=== PATIENT | male | born 1970 | race Caucasian/White ===

== ENCOUNTER 2020-08-29 20:59 | Emergency (ER) | payer OTHER, SELFPAY ==
[2020-08-29] VITALS (16 sets, daily range): BP systolic 119–138; BP diastolic 75–91; PULSE 68–80; RESP 12–22; TEMP 36.4; O2SAT 96–100
--- NOTE | ~2020-08-29 | XR_ITS ---
EXAMINATION: XR chest 2V DATE: 08/29/2020 21:22 INDICATION: Chest pain, nausea and vomiting TECHNIQUE: PA and lateral views of the chest were obtained. COMPARISON: None FINDINGS: Minimal elevation of the left hemidiaphragm. No focal airspace opacities, pulmonary edema, pleural ef fusion or pneumothorax. Calcified right hilar lymph node consistent with old granulomatous disease. T he cardiomediastinal silhouette is normal. Cholecystectomy clips in right upper quadrant. Mild upper thoracic levocurvature and mild lower thoracic spondylosis. IMPRESSION: 1. No acute cardiopulmonary disease. Reviewed, dictated and finalized at location A. KMASON
--- NOTE | ~2020-08-29 | CT_ITS ---
EXAMINATION: CT abdomen pelvis w con INDICATION: Epigastric abdominal pain TECHNIQUE: Computed tomographic images of the abdomen and pelvis were obtained after the administrati on of 100 cc of Omnipaque 350 intravenous contrast. The dose-length product (DLP) was 572.41 mGy-cm. Automated exposure control and iterative reconstruction technique were employed. COMPARISON: None available FINDINGS: Minimal dependent atelectasis is present in the lung bases. The heart size is normal. The g allbladder is surgically absent. There is mild enlargement of the common bile duct and central intrah epatic ducts which is likely due to post cholecystectomy state. The liver, spleen, pancreas, and adre nal glands are normal. The kidneys are unremarkable. No pathologically enlarged abdominal or pelvic l ymph nodes are identified. There is no free intraperitoneal gas or evidence of bowel obstruction. The re are changes of anterior and posterior fusion at L5-S1. Ventral hernia repair mesh is noted in the right lower quadrant. IMPRESSION: 1. No CT correlate for the patient's symptoms. Reviewed, dictated and finalized at location A. TEST LEAD
--- NOTE | 2020-08-29 21:00 | ECG_ITS ---
Measurements Intervals Cunningham Rate: 76 P: 54 RI: 171 QRS: -50 QRSD: 109 T: 22 QT: 395 QTc: 445 Interpretive Statements SINUS RHYTHM INCOMPLETE RIGHT BUNDLE BRANCH BLOCK LEFT ANTERIOR FASCICULAR BLOCK VOLTAGE CRITERIA FOR LVH BASELINE ARTIFACT- I, III, AVL, V2 ABNORMAL ECG Electronically Signed On 08-30-2020 7:04:20 [employer]RE[employer]IPPING AGENT by Serg Chappell D.O.
[2020-08-29] MEDS: ASPIRIN 81 MG CHEWABLE TABLET 324 MG PO (21:13)
--- NOTE | 2020-08-29 21:14 | PC.NURSE ---
Patient taken to xray.
[2020-08-29 21:31] LABS: Basophils Percent Auto 0.2 % (0.2-1.2); Eosinophils Absolute Auto 0.2 K/mm3 (0-0.3); Hematocrit 46.3 % (42.0-52.0); Hemoglobin 15.7 g/dL (14.0-18.0); Immature Granulocyte Absolute 0.04 K/mm3 (0.00-0.031); Immature Granulocyte Percent A 0.4 % (0-0.5); Lymphocytes Absolute Auto 2.26 K/mm3 (0.9-3.2); Lymphocytes Percent Auto 22.1 % (18.3-44.2); Mean Corpuscular HGB Conc 33.9 g/dl (32-36); Mean Corpuscular Hemoglobin 29.8 pg (26-34); Mean Corpuscular Volume 87.9 fl (80-100); Mean Platelet Volume 10.1 fl (7.4-10.4); Monocytes Absolute Auto 0.8 K/mm3 (0.1-0.6); Monocytes Percent Auto 7.9 % (2.6-8.5); Neutrophils Absolute Auto 6.9 K/mm3 (1.3-6.7); Neutrophils Percent Auto 67.4 % (45.5-73.1); Platelet Count Result 257 k/mm3 (150-375); Red Blood Count 5.27 M/mm3 (4.6-6.20); Red Cell Distribution Width 12.3 % (11.5-14.5); White Blood Count 10.2 K/mm3 (4.5-10.0)
--- NOTE | 2020-08-29 21:37 | ED.GENADULT ---
HPI - General Adult General Chief complaint: Chest Pain Stated complaint: chest pain Time Seen by Provider: 08/29/20 21:14 Source: patient and family Limitations: no limitations History of Present Illness HPI narrative: Patient is 49 years old white male presents with epigastric and lower sternal sharp stabbing pain like a knife started immediately after coming back from outside with severe cold weather. The pain was associated with nausea and vomiting twice, patient was diaphoretic and pale according to his . The symptoms lasted for about 20 to 40 minutes then resolved spontaneously. Currently patient is asymptomatic. Patient to chew, drink alcohol daily, history of abdominal hernia repair and cholecystectomy. Patient denies any fever, chills, shortness of breath, or back pain. Related Data Allergies Allergy/AdvReac Type Severity Reaction Status Date / Time No Known Allergies Allergy Verified 08/29/20 21:08 Review of Systems Review of Systems: Narrative: CONSTITUTIONAL: Denies fever, chills, or sweats. EYES: Denies visual changes, redness, or discharge. ENT: Denies rhinorrhea, congestion, sore throat, or otalgia. CARDIOVASCULAR: Denies chest pain, palpitations, or edema. RESPIRATORY: Denies cough or dyspnea. GASTROINTESTINAL: Denies abdominal pain, nausea, vomiting, or diarrhea. GENITOURINARY: Denies dysuria or hematuria. SKIN: Denies rash or itching. MUSCULOSKELETAL: Denies back pain, joint pain, or myalgia. NEUROLOGIC: Denies headache, numbness, or weakness. PSYCHIATRIC: Denies anxiety or depression. Exam Narrative: Exam Narrative: General appearance: Well-developed, well-nourished Skin: Normal color Head: Normocephalic, nontraumatic Eyes: Clear conjunctiva ENT: Oropharynx normal, ears normal, nose normal Neck: Supple, nontender Chest and respiratory: Airway patent, no respiratory distress, no accessory muscle use Heart: Regular rate/rhythm Abdomen: Soft, mild tenderness right lower quadrant, no organomegaly, quiet bowel sounds Vascular: Normal peripheral pulses, normal capillary refill. Musculoskeletal: Normal range of motion, nontender back Neurologic: Alert and oriented ?3, ENVIRONMENTAL STUDIES PROGRAM DIRECTOR is normal as tested, no gross motor deficit Course Course Emergency Course: Stable, improved Vital Signs Vital signs: Vital Signs Temperature 36.4 C L 08/29/20 21:02 Pulse Rate 77 08/29/20 21:02 Respiratory Rate 20 08/29/20 21:02 Blood Pressure 138/91 H 08/29/20 21:02 Pulse Oximetry 98 08/29/20 21:02 Temperature 36.4 C L 08/29/20 21:02 Pulse Rate 75 08/29/20 22:01 Respiratory Rate 17 08/29/20 22:01 Blood Pressure 127/86 08/29/20 22:01 Pulse Oximetry 96 08/29/20 22:01 Medical Decision Making MDM Narrative Medical decision making narrative: Patient presents with epigastric pain, started suddenly, Pancreatitis, also vaginitis, gastritis my concern. Labs, CT abdomen and pelvis with IV contrast, IV fluid ordered. Further plan to follow Vital Signs Vital Signs: Vital Signs Temperature 36.4 C L 08/29/20 21:02 Pulse Rate 77 08/29/20 21:02 Respiratory Rate 20 08/29/20 21:02 Blood Pressure 138/91 H 08/29/20 21:02 Pulse Oximetry 98 08/29/20 21:02 Temperature 36.4 C L 08/29/20 21:02 Pulse Rate 75 08/29/20 22:01 Respiratory Rate 17 08/29/20 22:01 Blood Pressure 127/86 08/29/20 22:01 Pulse Oximetry 96 08/29/20 22:01 Lab Data Result diagrams: 08/29/20 21:25 08/29/20 21:25 Labs: Lab Results 08/29/20 08/29/20 08/29/20 Range/Units 21:25 21:25 21:25 WBC 10.2 H (4.5-10.0) K/mm3 RBC 5.27 (4.6-6.20) M/mm3 Hgb 15.7 (14.0-18.0) g/dL Hct 46.3
[2020-08-29 21:40] LABS: INR 0.9; Prothrombin Time 13.2 Seconds (11.1-14.7)
[2020-08-29 21:41] LABS: Partial Thromboplastin Time 25.9 SECONDS (22.3-36.8)
[2020-08-29 21:44] LABS: Potassium 4.1 mmol/L (3.4-5.0)
[2020-08-29 21:55] LABS: Alanine Aminotransferase 67 U/L (4-50); Albumin Level 4.6 g/dL (3.5-5.1); Alkaline Phosphatase 61 U/L (38-126); Anion Gap 7 mmol/L (8-16); Aspartate Amino Transferase 130 U/L (17-59); Bilirubin,Total 0.3 mg/dL (0.2-1.3); Blood Urea Nitrogen 16 mg/dL (9-20); Calcium 8.9 mg/dL (8.4-10.2); Carbon Dioxide 28 mmol/L (22-30); Chloride 108 mmol/L (98-107); Estimated CRCL calculation 84 ml/min; Estimated Glomerular Filt Rate > 60; Glucose 93 mg/dL (75-110); Lipase 139 U/L (23-300); Sodium 143 mmol/L (137-145)
[2020-08-29 21:57] LABS: Troponin I < 0.012 ng/mL (0.000-0.034)
[2020-08-29 22:11] LABS: Add Urine Microscopic? YES; Appearance Urine Clear (Clear); Bacteria Urine Trace /hpf; Bilirubin Urine Negative (Negative); Blood Urine Negative (Negative); Color Urine Yellow (Yellow); Glucose Urine UA Negative (Negative); Ketones Urine Trace mg/dL (Negative); Leukocyte Esterase Ur Negative LEU/UL (Negative); Mucus Urine Rare /lpf; Nitrate Urine Negative (Negative); Protein Urine Negative (Negative); RBC Urine 0-2 /hpf (0-2); Specific Grav Ur 1.015 (1.001-1.035); Urobilinogen Urine Negative mg/dL (<2.0); WBC Urine 0-3 /hpf
== END 2020-08-29 23:49 | disposition home or self-care (01) ==
PROVIDERS: Emergency Provider Emergency Medicine; PCP Internal Medicine
DX: R10.13 Epigastric pain (principal); F10.10 Alcohol abuse, uncomplicated; I45.2 Bifascicular block; R94.31 Abnormal electrocardiogram [ECG] [EKG]
CPT/HCPCS: 36415; 71046; 74177; 80048; 80076; 81001; 83690; 84484; 85025; 85610; 85730; 93005; 99284; A9270; Q9967

== ENCOUNTER 2024-02-05 09:16 | Outpatient (CLI) | payer OTHER, SELFPAY ==
--- NOTE | 2024-02-05 09:50 | NEURO_ITS ---
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 # Right Carpal Tunnel Syndrome. # No ulnar neuropathy. # Normal needle/EMG exam. # Clinical correlation recommended. Nerve Conduction Studies Anti Sensory Summary Table Stim Site NR Peak (ms) P-T Amp (?V) Site1 Site2 Delta-P (ms) Dist (cm) Wicho (m/s) Right Median Anti Sensory (2-3nd Digit) Wrist 3.8 14.3 Wrist 2-3nd Digit 3.8 14.0 37 Wrist 3.5 16.0 Wrist 2-3nd Digit 3.8 14.0 37 Right Radial Anti Sensory (Base 1st Digit) Wrist 2.3 15.1 Wrist Base 1st Digit 2.3 0.0 Right Ulnar Anti Sensory (5th Digit) Wrist 2.1 31.8 Wrist 5th Digit 2.1 14.0 67 Motor Summary Table Stim Site NR Onset (ms) O-P Amp (mV) Site1 Site2 Delta-0 (ms) Dist (cm) Wicho (m/s) Right Median Motor (Abd Poll Brev) Wrist 4.4 1.8 Elbow Wrist 5.4 29.0 54 Elbow 9.8 2.1 Right Ulnar Motor (Abd Dig Minimi) Wrist 2.5 7.9 A Elbow Wrist 6.2 35.0 56 A Elbow 8.7 7.3 F Wave Studies NR F-Lat (ms) L-R F-Lat (ms) Right Median (Mrkrs) (Abd Poll Brev) 32.17 Right Ulnar (Mrkrs) (Abd Dig Min) 31.99 EMG Side Muscle Nerve Root Ins Act Fibs Amp Dur Recrt Comment Right 1stDorInt Ulnar C8-T1 Nml Nml Nml Nml Nml Right Ext Indicis Radial (Post Int) C7-8 Nml Nml Nml Nml Nml Right Ext Digitorum Radial (Post Int) C7-8 Nml Nml Nml Nml Nml Right BrachioRad Radial C5-6 Nml Nml Nml Nml Nml Right PronatorTeres Median C6-7 Nml Nml Nml Nml Nml Right Abd Poll Brev Median C8-T1 Nml Nml Nml Nml Nml Right ABD Dig Min Ulnar C8-T1 Nml Nml Nml Nml Nml MTDD
== END 2024-02-05 09:17 | disposition home or self-care (01) ==
LOC: ANHNEURO 09:17
PROVIDERS: PCP Internal Medicine; Visit Provider Plastic Surgery
DX: G56.01 Carpal tunnel syndrome, right upper limb (principal)
CPT/HCPCS: 95886; 95909

== ENCOUNTER 2024-05-08 09:18 | Day surgery (SDC) | payer OTHER, SELFPAY ==
[2024-04-21 10:02] VITALS: BMI 32.0
--- NOTE | 2024-05-07 13:21 | P.PNAN_ITS ---
Anes - Initial Pre Proc Eval Procedure: Operation Date: 05/08/24 12:15 Proposed Procedures p Right Endoscopic Carpal Tunnel Release, Possible Open Carpal Tunnel Release - Urvashi Neil MD s Right Middle Trigger Finger Release - Urvashi Neil MD Date/Time: 05/07/24 13:21 Surgeon: Urvashi Neil MD Pre Op Diagnosis: RT.Carpal Tunnel Syndrome,RT Middle Trigger Finger Patient Data Age: 53 Gender: M Height: 1.73 m Weight: 95.5 kg Allergies Allergy/AdvReac Type Severity Reaction Status Date / Time No Known Allergies Allergy Verified 04/21/24 10:02 Home Medications Medication Instructions Recorded Confirmed Type pantoprazole 40 mg granules 40 mg PO DAILY #30 ea 08/29/20 04/21/24 Rx delayed-release for susp in packet (Protonix) tramadol 50 mg tablet 50 mg PO Q6H PRN pain #12 tabs 05/08/24 Rx Patient hx anesthesia problems: none Family hx anesthesia problems: none Results Review: All pre-operative results and documents have been reviewed as part of the pre- operative evaluation. [facility] Past Medical History Medical History (Updated 05/08/24 @ 11:34 by Jhonatan Warner DO) GERD (gastroesophageal reflux disease) Hypertension SORAIDA (obstructive sleep apnea) Social History Social History (Updated 05/08/24 @ 11:34 by Jhonatan Warner DO) Smoking status: Never smoker Tobacco type: smokeless tobacco Smokeless tobacco user: chewing tobacco Alcohol intake: current Alcohol use details: 5 drinks/day average Substance use type: does not use Do You Feel Safe in your Home?: Yes Lack of Transportation: No Lack of Food: Never True Current Housing: Decline to Answer Concerned About Future Housing: Decline to Answer Difficulty Paying Gas/Electric Bills: Decline to Answer Difficulty Paying for Meds: Decline to Answer Currently Unemployed: Decline to Answer Education: Decline to Answer Difficulty w/ Childcare or Family Care: No Living arrangements: with family Anes - Eval Final PreProcedure Day of Procedure 05/07/24 13:21 Patient weight: obese Heart: regular rate and rhythm Lungs: clear to auscultation Airway: Mallampati scale class II Neurological: alert and oriented Last oral intake: >/= 8 hours ASA classification: III Emergent: no Anesthetic plan: proceed Anesthesia type and monitoring: general GIVS and standard monitoring Results Review: All pre-operative results and documents have been reviewed as part of the pre- operative evaluation. Informed Consent: The patient's anesthetic plan and its attendant risks and benefits were discussed with the patient/family/POA. Questions were solicited and answers provided to the satisfaction of the patient/family/POA.
--- NOTE | 2024-05-08 07:01 | P.OP_ITS ---
Procedure Note - Detailed Date of Procedure 05/08/24 Pre-op Diagnosis RT.Carpal Tunnel Syndrome,RT Middle Trigger Finger Post-op Diagnosis Same Procedure Performed right ectr and MF a1 nisha release Surgeon Urvashi Neil MD Service Order Dispatcher Flakito Lim PA-C Anesthesia MAC Description of Procedure INFORMED CONSENT: The patient was seen and examined and marked in the pre-op area.? The patient signed the consent form. PROCEDURE IN DETAIL:The patient taken back to OR on the stretcher in supine position. Time out performed with anesthesia, surgeon and staff agreeing on patient's name site and surgery to be performed SCDs were placed on the lower extremities and inflated. A tourniquet was placed on {right} upper extremity and antibiotics given IV After anesthesia administered sedation I injected {6}cc 1%lido with epi and 0.5% marcaine plain at the operative site The?{right upper extremity}?was prepped and draped in sterile fashion the??{right upper extremity} was? exsanguinated with Esmarch bandage and tourniquet inflated to 250mmHg I made a transverse incision in the {right} volar distal wrist crease through skin and dermis with 15 blade scalpel.? Littler scissors spread down to antebrachial fascia. A small incision was made in antebrachial fascia allowing access to Carpal tunnel. I proceeded with sequential dilation staying in line with the ring finger and hugging the hook of the hamate.? I then used the synovial elevator to free any adhesions from the underside of the transverse carpal ligament. Next I was able to insert the Microaire endoscopic carpal tunnel device with direct visualization of the transverse fibers on the monitor and proceeded with complete segmental retrograde release of the ligament in its entirety.? I irrigated with normal saline and closed with 4-0 monocryl for dermis and subcuticular closure. Next I took my attention to the right middle finger where I proceeded with making a longitudinal incision over the middle finger A1 nisha through skin and dermis with a 15 blade scalpel. Littler scissors were used to spread down A1 p ulley. The A1 nisha was initially incised with a 15 blade scalpel. Littler scissors were used to spread above it and below it proximally and distally and completed the transection entirely. Ragnell retractor was used withdrawal the FDS and FDP tendons for inspection. They were free of masses and synovitis and gliding smoothly in the sheath without triggering or crepitus. I irrigated with normal saline and closed with 4-0 chromic. A dressing of Dermabond for the wrist and xeroform for the palm, 4x4, evelyn, and a volar splint was applied for patient safety, security, and comfort and secured with an omaira bandage after the tourniquet was let down noting the hand was warm and well perfused. The patient was then awaken from anesthesia and transferred to the recovery room in stable condition.? Complications - none EBL- 0cc Disposition - home in stable conditions Flakito Lim pA-C was essential for positioning, retraction, closure and dressing placement G Billing Surgery - Charge Forward: Surgery Billing ([id number] same for flakito abernathy )
--- NOTE | 2024-05-08 07:01 | PM.HPGS ---
History of Present Illness History of Present Illness Chief complaint: RT.Carpal Tunnel Syndrome,RT Middle Trigger Finger Narrative: Patient seen and examined in pre-operative holding area. No interval change in medical history or symptoms. Patient recalls previous discussion of benefits and alternatives to procedure. Continues to desire to proceed with right endoscopic possible open carpal tunnel release and right middle finger a1 nisha release . Reviewed procedure, post-op expectations and risks including but not limited to bleeding, infection, injury to tendon/nerve/vessel, decreased hand function, stiffness, RSD, no change or worsening of symptoms. I discussed the possible use of assistants and their participation in the case. Patient stated understanding and signed the consent form wishing to proceed. Review of Systems Review of Systems: All systems reviewed & are unremarkable except as noted in HPI and below PMFSH Past Medical History Medical History (Updated 05/07/24 @ 13:21 by Jhonatan Warner DO) GERD (gastroesophageal reflux disease) Hypertension Social History Social History (Updated 10/03/23 @ 08:26 by Fabiola Amaya MA) Smoking status: Never smoker Tobacco type: smokeless tobacco Smokeless tobacco user: chewing tobacco Alcohol intake: current Drinks per week: 12 Substance use type: does not use Do You Feel Safe in your Home?: Yes Lack of Transportation: No Lack of Food: Never True Current Housing: Decline to Answer Concerned About Future Housing: Decline to Answer Difficulty Paying Gas/Electric Bills: Decline to Answer Difficulty Paying for Meds: Decline to Answer Currently Unemployed: Decline to Answer Education: Decline to Answer Difficulty w/ Childcare or Family Care: No Living arrangements: with family Meds Home Medications and Allergies Home Medications Medication Instructions Recorded Confirmed Type pantoprazole 40 mg granules 40 mg PO DAILY #30 ea 08/29/20 04/21/24 Rx delayed-release for susp in packet (Protonix) Allergies Allergy/AdvReac Type Severity Reaction Status Date / Time No Known Allergies Allergy Verified 04/21/24 10:02 Exam Narrative: unchanged Assessment and Plan Assessment and plan (1) Trigger finger, right middle finger: Code(s): M65.331 - Trigger finger, right middle finger Status: Acute Assessment and Plan: cont as above (2) Carpal tunnel syndrome of right wrist: Code(s): G56.01 - Carpal tunnel syndrome, right upper limb Status: Acute
[2024-05-08] MEDS: LACTATED RINGERS 1,000 ML 30 ML IV CONT (11:03)
[2024-05-08 11:05] VITALS: BP 138/90; PULSE 62; RESP 18; TEMP 36.2; O2SAT 98
[2024-05-08] MEDS: ceFAZolin SODIUM 2 GM/20 ML SW SYRINGE IV PUSH (11:41)
[2024-05-08] MEDS: BUPivacaine HCL 0.5% 10 ML AMP 3 ML INFILTRATE (11:45)
[2024-05-08] MEDS: LIDOCAINE HCL 1% LOCAL INJ 20 ML VIAL 3 ML INFILTRATE (11:45)
[2024-05-08 12:05] VITALS: BP 134/77; PULSE 73; RESP 16; O2SAT 100
[2024-05-08 12:15] VITALS: O2SAT 98
[2024-05-08] MEDS: oxyCODONE HCL (*CRX) 5 MG TAB IR PO (12:34)
[2024-05-08 12:35] VITALS: BP 141/84; PULSE 71; RESP 20; O2SAT 98
--- NOTE | 2024-05-08 12:43 | WPDANESPN ---
Anes - Prog Note Post-Op Date/Time: 05/08/24 12:43 Cardiovascular status: normal Respiratory status: normal Airway patency: baseline Mental status: baseline Post-Op hydration status: normal Vital Signs: Last Vital Signs Temp 36.2 C L 05/08/24 11:05 Pulse 73 05/08/24 12:05 Resp 16 05/08/24 12:05 BP 134/77 05/08/24 12:05 Pulse Ox 100 05/08/24 12:05 O2 Del Method Simple Face Mask 05/08/24 12:05 O2 Flow Rate 6 05/08/24 12:05 Pain Score (VAS): 0 Post-procedural complaints: none Patient Feedback: Patient satisfied with anesthetic care. Other Findings: Patient vital signs back to baseline. Patient denies nausea and vomiting. Patient's pain under control. Patient OK for discharge.
[2024-05-08 13:00] VITALS: BP 129/91; PULSE 78; RESP 20; O2SAT 98
== END 2024-05-08 13:06 | disposition home or self-care (01) ==
PROVIDERS: Visit Provider Plastic Surgery
PROC: 01N54ZZ Release Median Nerve, Percutaneous Endoscopic Approach (ICD-10-PCS; CPT 29848; principal; 2024-05-08 12:15)
PROC: (CPT 26055; 2024-05-08 12:15)
DX: G56.01 Carpal tunnel syndrome, right upper limb (principal); M65.331 Trigger finger, right middle finger
CPT/HCPCS: 29848; 26055

== ENCOUNTER 2024-10-29 09:56 | Outpatient (CLI) | payer OTHER, SELFPAY ==
--- NOTE | ~2024-10-29 | XR_ITS ---
Right Hand Technique: PA, oblique, and lateral views were obtained. Clinical History: Arthritis Findings: No acute fracture or dislocation is seen. Osseous alignment is anatomic. Joint spaces are p reserved. Soft tissues are unremarkable. Impression: Unremarkable right hand. Reviewed, dictated and finalized at location M. Impression: Unremarkable right hand.
--- NOTE | ~2024-10-29 | XR_ITS ---
Right wrist Technique: PA, oblique, lateral, and ulnar deviation views were obtained. Clinical History: Pain Findings: No acute fracture or dislocation is seen. Osseous alignment is anatomic. Joint spaces are p reserved. Soft tissues are unremarkable. Impression: Unremarkable right wrist radiographs. Reviewed, dictated and finalized at location . Impression: Unremarkable right wrist radiographs.
--- OUTSIDE RECORDS SUMMARY | 2024-10-29 11:00 | XMS_ITS | Clinical Summary ---
Author Organization [facility] Address [address] [place] [address] Care Team Providers Care Ecology Teacher Name Role Phone Eryn Mar MD Primary Care Provider [phone] Source Comments [facility] [employer],non-owned Affiliates and Associated Physician Practices is amultiple site organization consisting of ambulatory clinics and hospital sitesin [place], [place], [place] and [place]. This disclosure is being madepursuant to the Care Everywhere program and may not contain all information available regarding this patient. Last updated 18.[facility] [employer] Encounters Date Type Department Care Team Description 08/18/2024 Lab Requisition [facility] - DermPath Lab [address] [facility] [place] [address] Maria Fernanda Escudero MD from Last 3 Months Social History Tobacco Use Types Packs/Day Years Used Date Smoking Tobacco: Never Assessed Sex and Gender Information Value Date Recorded Sex Assigned at Not on file Legal Sex Male 7:33 PM FRAME STYLIST Gender Identity Not on file Sexual Orientation Not on file Plan of Treatment Health Maintenance Due Date Last Done Comments COLOGUARD (AGES 45-75) - COL ON CA SCREENING 1971 COLON MONITORING 1971 COLONOSCOPY - COLON CA SCREENING 1971 CT COLONOGRAPHY - COLON CA SCREENING 1971 Colorectal Cancer Screening 1971 FIT - COLON CA SCREENING 1971 FLEX SIG - COLON CA SCREENING 1971 LIPID TESTING 1971 HIV SCREENING 11/17/1986 HEPATITIS C SCREENING 11/13/1989 DTAP/TDAP/TD VACCINES (1 - Tdap) 11/17/1990 HEPATITIS B VACCINE (1 of 3 - 19+ 3-dose series) 11/17/1990 PNEUMOCOCCAL VACCINE 50+ (1 of 1 - PCV) 11/17/2021 ZOSTER VACCINE (1 of 2) 11/17/2021 COVID-19 VACCINE (2023-2 5 season) 2024 DEPRESSION SCREENING 07/16/2024 INFLUENZA VACCINE (Season Ended) 2025 HIB VACCINE Aged Out No longer eligi ble based on patient's age to complete this topic HPV VACCINE Aged Out No longer eligi ble based on patient's age to complete this topic MENINGOCOCCAL (Group B) VACC INE SHARED DECISION-MAKING Aged Out No longer eligibl e based on patient's age to complete this topic MENINGOCOCCAL GROUPS A/C/Y/W VACCINE Aged Out No longer eligible b ased on patient's age to complete this topic Procedures Procedure Name Priority Date/Time Associated Diagnosis Comments DERMATOPATHOLOGY Routine 08/18/2024 11:3 5 AM FRAME STYLIST from Last 3 Months Results * DERMATOPATHOLOGY (08/18/2024 11:35 AM FRAME STYLIST) Case Report Dermatopathology Report Case: [id number] Authorizing Provider: Maria Fernanda Escudero MD Collected: 08/18/2024 11:35 AM Ordering Location: [facility] - Received: 08/18/2024 04:03 PM DermPath Lab Pathologist: Kenisha Rodriguez MD Specimens: A) - Skin, right lower lateral leg B) - Skin, left thigh 5:10 PM FRAME STYLIST DERMATOPATHOLOGY LABORATORY Final Diagnosis Specimen A. SKIN, right lower lateral leg: COMPOUND MELANOCYTIC NEVUS, IRRITATED (D22.71) Specimen B. SKIN, left thigh: CUTANEOUS DERMATOPHYTOSIS (B35.9) 5:10 PM FRAME STYLIST DERMATOPATHOLOGY LABORATORY Clinical History A: R/O MM B: AD vs ACD vs MF 5:10 PM FRAME STYLIST DERMATOPATHOLOGY LABORATORY Gross Description Specimen A: Received is one formalin filled container labeled with the patient's name and designated right lower lateral leg. The specimen consists of a shave biopsy measuring 10x8x1 mm. Jar 0. Specimen B: Received is one formalin filled container labeled with the patient's name and designated left thigh. The specimen consists of a punch biopsy measuring 4x4x5 mm. Jar 0. 5:10 PM [facility]ERMAT[facility] Microscopic Description Specimen A. SKIN, right lower lateral leg: There is melanin pigment in the stratum corneum. There are nests of melanocytes at the dermal-epidermal junction and within the dermis. The hematoxylin and eosin stain is reviewed; immunohistochemical stains are performed for further diagnosis. MART-1/Melan-A immunohistochemical stain highlights the melanocytes as above. HMB45 stain is lost in the dermal melanocytes with dermal descent. Specimen B. SKIN, left thigh: Epidermal spongiosis is noted with focal parakeratosis. There is a perivascular infiltrate of lymphocytes. A Grocott's methenamine silver (GMS) stain identifies fungal hyphae in the stratum corneum. The hematoxylin and eosin stain is reviewed; immunohistochemical stains are performed to rule out malignancy. CD3 highlights the lymphocytes with a normal CD4 to CD8 ratio of 4:1. 5:10 PM [facility] DERMATOPATH[facility]Y [facility] Disclaimer An external and internal positive and negative controls are appropriate for the histochemical, immunohistochemical and immunofluorescence stain(s) in this case (if any), except where stated explicitly. The performance characteristics of the stain(s) cited in this report were developed and its performance characteristic determined by the Dermatopathology Laboratory at [facility], directed by Dr. Nuris Nunn. These tests need not be, and therefore are not, approved by the [place] Food and Drug Administration. The tests are used for clinical purposes. Billing Codes Specimen Charges Stain Charges 57387 22303 1 1 [id number] 40212 1 1 1 1 1 1 5 5:10 PM [facility] DERMAT[facility] Embedded Images 5:10 PM [facility] Pathology/Cytology TISSUE SPECIMEN FROM SKIN / Unknown 08/18/2024 11:35 AM FRAME STYLIST 08/18/2024 4:03 PM FRAME STYLIST Miscellaneous samples (specimen) TISSUE SPECIMEN FROM SKIN / Unknown 08/18/2024 11:35 AM FRAME STYLIST 08/18/2024 4:03 PM FRAME STYLIST us Maria Fernanda Escudero MD LAB - PATHOLOGY/CYTOLOGY OR DERABLES Final Result DERMATOPATHOLOGY LABORATORY [facility] - Department of Dermatology [address] [place] [address], [facility] [phone] from Last 3 Months Insurance Care Teams Ecology Teacher Relationship Specialty Start Date End Date Eryn Mar MD PCP - General 08/06/09
--- OUTSIDE RECORDS SUMMARY | 2024-10-29 11:00 | XMS_ITS | Clinical Summary ---
Author Organization [facility] Address [facility] [place] [address] Care Team Providers Care Operators Teacher Name Role Phone None, Provider MD Primary Care Provider Unavaila ble Allergies No known active allergies Medications methylPREDNISolo ne, SHAQUILLE, 4 MG tabletIndication s:Midline low back pain, unspecified chronicity, unspecified whether sciatica present Follow package directions 1 each 0 Active HYDROcodone-acet aminophen 5-325 MG tabletIndication s:Acute Pain < 7 Day Supply Take 1 tablet by mouth every 6 (six) hours as needed for Pain. Indications: Acute Pain < 7 Day Supply 28 tablet 0 Active Active Problems Problem Noted Date Diagnosed Date Benign essential hypertension 12/31/2017 SORAIDA (obstructive sleep apnea) 08/03/2016 Shoulder pain, left 06/12/2016 Chronic low back pain 03/27/2014 Immunizations Immunization Administration Dates Next Due Hepatitis B (Generic: Adult) 08/07/2000,03/01/20 00,02/02/2000 Td (Tenivac) preservative free 07/19/2005 Tdap (Generic) 06/12/2016, 6,04/23/2014,06/19/2011,1 08/20/2010 Social History Tobacco Use Types Packs/Day Years Used Date Smoking Tobacco: Never Smokeless Tobacco: Current Chew Alcohol Use Standard Drinks/Week Comments No 0 (1 standard drink = 0.6 oz pur e alcohol) AUDIT-C Answer Date Recorded Frequency of Alcohol Consumption 2-3 times a wee k 11/28/2018 Average Number of Drinks Not on file 019 Frequency of Binge Drinking Not on file 11/13 Sex and Gender Information Value Date Recorded Sex Assigned at Not on file Legal Sex Male 10:12 PM CDT Gender Identity Not on file Sexual Orientation Not on file Last Filed Vital Signs Vital Sign Reading Time Taken Comments Blood Pressure 119/65 01/09/2019 8:55 PM CDT Pulse 81 01/09/2019 8:55 PM CDT Temperature 36.3 C (97.4 F) 01/09/2019 4:36 PM CDT Respiratory Rate 16 01/09/2019 8:55 PM CDT Oxygen Saturation 98% 01/09/2019 8:55 PM CDT Inhaled Oxygen Concentration - - Weight 90.7 kg (200 lb) 01/09/2019 4:28 PM CDT Height 170.2 cm (5' 7 ) 01/09/2019 4:28 PM CDT Body Mass Index 31.32 01/09/2019 4:28 PM CDT Plan of Treatment Health Maintenance Due Date Last Done Comments Colorectal Cancer Screening Colonoscopy (10 Years) 1971 Annual Physical 11/17/1974 Hepatitis C 11/17/1989 Pneumococcal Vaccine: 50+ Years (1 of 1 - PCV) 11/17/2021 Zoster Vaccines (1 of 2) 11/17/2021 COVID-19 Vaccine (1 - 2023- season) 2024 DTaP, Tdap and Td Vaccines (6 - Td or Tdap) 06/12/2026 06/12/2016, 06/12/2016, 04/23/2014, Additional history exists Hepatitis B Vaccines Completed 08/07/2000, 03/01/2000, 02/02/2000 Meningococcal B Vaccine Aged Out No l onger eligible based on patient's age to complete this topic Meningococcal Vaccine Aged Out No teddy malina eligible based on patient's age to complete this topic RSV Immunizations Under 20 Months Aged Out No longer eligible based on patient's age to complete this topic Insurance JUAN LUIS Care Teams Operators Teacher Relationship Specialty Start Date End Date None, Provider, PCP - General UNKNOWN PHYSICIAN SPECIALTY 06/06/23
--- OUTSIDE RECORDS SUMMARY | 2024-10-29 11:00 | XMS_ITS | Encounter Summary ---
Author Organization [facility] Address [address] [place] [address] Care Team Providers Care Director Of Strategic Marketing Name Role Phone Eryn Mar MD Primary Care Provider [phone] Encounter Details Date Type Department Care Team (Late st Contact Info) Description 08/18/2024 Lab Requisition [facility] - DermPath Lab [address] [facility], [facility] [place] [address] Maria Fernanda Escudero MD [address] [facility] [address] [place] [address] Social History Tobacco Use Types Packs/Day Years Used Date Smoking Tobacco: Never Assessed Sex and Gender Information Value Date Recorded Sex Assigned at Not on file Legal Sex Male 7:33 PM LOGGING CONTRACTOR Gender Identity Not on file Sexual Orientation Not on file documented as of this encounter Plan of Treatment Not on file documented as of this encounter Procedures Procedure Name Priority Date/Time Associated Diagnosis Comments DERMATOPATHOLOGY Routine 08/18/2024 11:3 5 AM LOGGING CONTRACTOR documented in this encounter Results * DERMATOPATHOLOGY (08/18/2024 11:35 AM LOGGING CONTRACTOR) Case Report Dermatopathology Report Case: [id number] Authorizing Provider: Maria Fernanda Escudero MD Collected: 08/18/2024 11:35 AM Ordering Location: [facility] - Received: 08/18/2024 04:03 PM DermPath Lab Pathologist: Kenisha Rodriguez MD Specimens: A) - Skin, right lower lateral leg B) - Skin, left thigh 5:10 PM LOGGING CONTRACTOR DERMATOPATHOLOGY LABORATORY Final Diagnosis Specimen A. SKIN, right lower lateral leg: COMPOUND MELANOCYTIC NEVUS, IRRITATED (D22.71) Specimen B. SKIN, left thigh: CUTANEOUS DERMATOPHYTOSIS (B35.9) 5:10 PM [facility] DERMATOPATHOLOGY LABORATORY Clinical History A: R/O MM B: AD vs ACD vs MF 5:10 PM [facility] DERMATOPATHOLOGY LABORATORY Gross Description Specimen A: Received [...] measuring 4x4x5 mm. Jar 0. 5:10 PM [facility] DERMATOPATHOLOGY LABORATORY Microscopic Description Specimen A. [...] to CD8 ratio of 4:1. 5:10 PM [facility] DERMATOPATHOLOGY LABORATORY Disclaimer An external and internal positive and negative controls are appropriate for the histochemical, immunohistochemical and immunofluorescence stain(s) in this case (if any), except where stated explicitly. The performance characteristics of the stain(s) cited in this report were developed and its performance characteristic determined by the Dermatopathology Laboratory at [facility], directed by Dr. Nuris Nunn. These tests need not be, and therefore are not, approved by the [place] Food and Drug Administration. The tests are used for clinical purposes. Billing Codes Specimen Charges Stain Charges 76591 74346 1 1 [id number] 13882 [id number] 1 1 1 1 1 1 5 5:10 PM LOGGING CONTRACTOR DERMATOPATHOLOGY LABORATORY Embedded Images 5:10 PM LOGGING CONTRACTOR DERMATOPATHOLOGY LABORATORY Pathology/Cytology TISSUE SPECIMEN FROM SKIN / Unknown 08/18/2024 11:35 AM LOGGING CONTRACTOR 08/18/2024 4:03 PM LOGGING CONTRACTOR Miscellaneous samples (specimen) TISSUE SPECIMEN FROM SKIN / Unknown 08/18/2024 11:35 AM LOGGING CONTRACTOR 08/18/2024 4:03 PM LOGGING CONTRACTOR Maria Fernanda Escudero MD LAB - PATHOLOGY/CYTOLOGY OR DERABLES Final Result DERMATOPATHOLOGY LABORATORY [facility] - Department of Dermatology [facility] Specialized Medicine [address] [place] [address], [address] [phone] documented in this encounter Visit Diagnoses Not on filedocumented in this encounter Care Teams Director Of Strategic Marketing Relationship Specialty Start Date End Date Eryn Mar MD PCP - General 08/06/09 documented as of this encounter
--- OUTSIDE RECORDS SUMMARY | 2024-10-29 11:00 | XMS_ITS | Encounter Summary ---
Author Organization [facility] Address [facility] [place] [address] Care Team Providers Care Small Piece Cutter Name Role Phone Eryn Mar MD Primary Care Provider [phone] None, Provider Primary Care Provider Unavaila ble Encounter Details Date Type Department Care Team (Late st Contact Info) Description 10/09/2017 Abstract [facility] CONVERSION [address] [place] [id number] , Generic Conversion, Social History Tobacco Use Types Packs/Day Years Used Date Smoking Tobacco: Never Assessed Sex and Gender Information Value Date Recorded Sex Assigned at Not on file Legal Sex Male 10:12 PM CDT Gender Identity Not on file Sexual Orientation Not on file documented as of this encounter Plan of Treatment Not on file documented as of this encounter Visit Diagnoses Not on filedocumented in this encounter Care Teams Small Piece Cutter Relationship Specialty Start Date End Date Eyrn Mar MD PCP - General INTERNAL MEDICINE 09/13/17 06/05/23 None, ProviderMD PCP - General UNKNOWN PHYSICIAN SPECIALTY 06/06/23 documented as of this encounter
--- OUTSIDE RECORDS SUMMARY | 2024-10-29 11:01 | XMS_ITS | CONTINUITY OF CARE DOCUMENT ---
Author Name anila high Address Unknown Organization [facility] Address [address] [place] [address] Phone [phone] Care Team Providers Care Display Coordinator Name Role Phone Kassidy RAMIREZ, Jaydon Cullen Unavailable [phone] BILL RAMIREZ, ROB Unavailable BILL RAMIREZ, ROB Unavailable [phone] PROBLEMS Condition Status Date Provider Notes Other symptoms involving cardiovascular system active Jaydon Yi MD HTN essential active Jaydon tolentino MD Chest pain - precordial active Jaydon Yi MD Palpitations active Jaydon zapata MD ENCOUNTERS Date Type Provider Location Encounter Diag nosis - In-person encounter Office Visit Jaydon Pelayo Office - In-person encounter Office Visit Jaydon [facility]le[facility] Other symptoms involving cardiovascular systemHTN essentialChest pain - precordialPalpitations VITAL SIGNS Date Observation Value Provider Body Mass Index (Ratio) 33.25 kg/m2 Shanna Espinoza blood pressure, diastolic 72 mm[Hg] Shailesh Watson blood pressure, systolic 120 mm[Hg] Zainab Watson respiratory rate E&M 16 /min Alejandro Watson oxygen saturation, oximetry 98 % Alejandro Watson pulse rate 72 /min Alejandro tam weight E&M 206 [lb_av] [facility] height E&M 66 [in_i] [facility] Body Mass Index (Ratio) 34.05 kg/m2 Vernon rt Subhash Yi MD pulse rate 82 /min Alejandrorosanna Maza [facility] blood pressure, diastolic 80 mm[Hg] Shailesh purcell Elisharenatearti blood pressure, systolic 124 mm[Hg] Zainab Fariasdontae oxygen saturation, oximetry 98 % Alejandrorosanna Watson blood pressure, resting No Patr lorrimalgorzata Watson height E&M 66 [in_i] [facility] respiratory rate E&M 16 /min Alejandro Watson weight E&M 211 [lb_av] [facility] ALLERGIES No Known Drug Allergies HISTORY OF MEDICATION USE Medication Status Instructions Dates Provider Indications Com ments ASPIRIN EC 81 MG ORAL TABLET DELAYED RELEASE active one tab daily Jaydon Yi MD AMLODIPINE BESYLATE 5 MG ORAL TABLET active take 1 tablet once daily Alejandro Tellorosey SOCIAL HISTORY Date Observation Value Provider social history reviewed E&M revi ewed - no changes required Jaydon Yi MD number of grandchildren Jaydon Mckenzie RN social history E&M The patient i s and lives at home (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 He works for the [employer] He denies smoking (but does use occasional chewing tobacco) and illicit drug use. Jaydon Yi MD smoking status Never smoker Alejandro Tellorenate arti FAMILY HISTORY Family Member Condition Father Family History Unkno wn Mother Family History Unkno wn INSURANCE PROVIDERS Payer name Policy type / Coverage type [employer] party ID [id number] PAY [id number] ADVANCE DIRECTIVES Name Date DO NOT RESUSCITATE TREATMENT PLAN Date Name Performer Cardiology:Symptoms are mild and non-limiting. I will follow clinically for now and will consider obtaining a monitoring coordinator if symptoms become more frequent or severe. Jaydon Yi MD Cardiology:Blood pre ssure is at goal with Amlodipine, which I will continue at 5mg qday. Jaydon Yi MD Cardiology:Symptoms have improved after adding Amlodipine. His coronary angiogram was normal, and his symptoms may have been blood pressure related with spikes during physical activity. I will continue his regimen without change for now. LV systolic function is notably normal. Jaydon Yi MD Cardiology:Symptoms are mild and non-limiting. I will work-up his chest pain first, and I will then consider obtaining a monitoring coordinator if symptoms warrant. Jaydon Yi MD Cardiology:Blood pressure is at goal. Jaydon Yi MD Cardiology:The patie nt has had some improvement in symptoms since starting Amlodipine, which can act as an anti-anginal agent. I will start ASA 81mg qday. He has an abnormal ECG, and I will arrange for an exercise nuclear stress test to assess myocardial perfusion as well as an echocardiogram to evaluate cardiac anatomy and function. Jaydon Yi MD HISTORY OF PROCEDURES Procedure Date Procedure Name Provider Procedure Notes S tatus Cardiolite, 2 units Jaydon Yi MD completed SPECT Images Jaydon Yi MD completed Stress EKG Jaydon Yi MD completed EKG Jaydon Yi MD completed
--- OUTSIDE RECORDS SUMMARY | 2024-10-29 11:02 | XMS_ITS | Continuity of Care Document ---
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 Name Role Phone Marino Garcia MD Unavailable Unavailabl e Allergies, Adverse Reactions, Alerts Substance Reaction Status Criticality No Known Allergies Active No Inform ation Procedures Procedure Date Independent Medical Examination LUISANA Pre Payment Advance Directives Directive Yes / No Effective Date File Name No Information Encounters Encounter Description Practice Location Reason(s) For Visit Diagnoses Date Provider Providers Copied on Encounter Independent Medical Examination LUISANA [facility], [address], [id number], [place] tel:[phone] [facility] Right wrist (chief complaint) Carpal tunnel syndrome, right upper limbPrimary osteoarthritis, right wristContusion of right wrist, sequelaTrigger finger, right middle fingerLesion of ulnar nerve, right upper limb Apr-2 4 Jose Pichardo. [address] [facility], [address] [place] [address], [id number], [place]. tel:[phone] [facility], [address] [place] [address], [id number], [place] tel:[phone] [facility] No Information Apr- 4 [facility] Marino. [address] [facility], [address], [id number], [place]. tel:[phone] Family History Family Member Type Diagnosis Age At Onset No Information Immunizations Vaccine Date Status Comments influenza, injectable, quadrivalent, (3 years or older) not administered Note: recorded ; Kirsten rce: Source Unspecified Payers Payer name Insurance type Covered alliance party ID Jakub gordillo(s) Ex[employer] Works [id number] Social History Type Description Quantity Date Captured Comments Alcohol Use Details Unknown Caffeine Use Details Unknown Tobacco Use Status Smoking Status Current some day smoker Non-Smoking Tobacco Use Details : No Details Available : No Details Available Sex Male Vital Signs Date / Time: Height Weight BMI Pulse Rate Blood Pressure Temperature Respiratory Rate Body Surface Area Head Circumference Head Circ. Percentile Wt./Miguel Angel. Percentile BMI percentile Pulse Ox Inhaled Ox 10:17 AM 69.00 in 95.254 kg (210.00 lbs) 31.0 1 kg/m yadieler (2) Chief Complaint And Reason For Visit From encounter dated '11/06/2023 10:15'. Right wrist (chief complaint). Description: Mr. Jesus Vega presents to the office today on November 06, 2023. He is here for an Independent Medical Evaluation regarding his right wrist. Mr. Vega injured his right wrist while he was working for [employer]. He started working for [employer] on February 13, 1994. Mr. Vega explains that he worked for the [employer] for 29 years. He was terminated at the end of March 2024. Mr. Vega reports that one day at the end of March 2024, he was met in the parking lot by his manager membership, and he was told that he was no longer needed. In other words, he was terminated. Mr. Vega asked why, and his manager membership said that he did not have to give him a reason. Mr. Vega reports to me today that he had not worked anywhere else before working for [employer]. He is currently not working. Mr. 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 He reports everything is physical at his job . A Job Requirements form from April 04, 2023 describes Mr. Vega's job as requiring lifting over 50 pounds and carrying over 50 pounds up to 33% of the time. The job also requires simple grasping and use of machinery or tools, including construction equipment and hand tools. Mr. Vega injured his right wrist at work on February 13, 2023. He explains that he and another worker were dr louieing a margoth. He was using a couples therapist, and he slid into a ditch. Mr. Vega reports that the ditch had concrete at the bottom. He tells me that he was holding a $5000 piece of equipment in his hands when he fell, so he fell awkwardly trying to protect the equipment. He struck theground with his right side. Mr. Vega reports that he had pain in his right knee and right wrist a fter the injury. He continued working after the injury, although he did report the injury that sameday. Mr. Vega tells me that he developed increasing pain, so he filled out the appropriate paperwork a few days later. He was then referred to Dr. Christopher Soler MD with [facility]. Mr. Vega was seen by Dr. Soler on March 13, 2023. The office note from Dr. Soler documents that Mr. Vega presented with right knee pain, but there is no mention of the injury to hisright wrist in his office note. Mr. Vega was treated for his right knee injury with a cortisone injection, a right knee brace, Mobic as an oral anti-inflammatory agent, Diclofenac cream as a topical anti-inflammatory agent, physical therapy, and home exercises. He was placed on work restrictionsof must use right knee brace at work. He was scheduled to follow up with Dr. Soler in 5 weeks. Mr. Vega did follow up with Dr. Soler on April 17, 2023 for his right knee. However, again, the office note has no mention of the injury to his right wrist. Mr Vega was to continue the knee brace and anti-inflammatories. Physical therapy had been delayed, but was scheduled to begin on 2022. Mr. Vega worked with physical therapy at [facility] from April 26, 2023 through May 24, 2023. There is no documentation within these physical therapy notes aboutthe injury to his right wrist, or concerning any symptoms relative to his right wrist. Mr. Vega followed up with Dr. Soler on May 29, 2023. This time, the chief complaints section of the office note lists right knee pain, right wrist pain, and right elbow pain. Dr. Soler documented that when Mr. Vega fell on February 13, 2023 ...he also tried to catch himself with his right upper extremity.. There was ...minor pain at the time of the injury but it is persistent and not getting any better... Mr. Vega followed up with Dr. Thuy zapien on July 03, 2023. Dr. Soler documented that ...the patient is showing no improvement at this point... On examination of the right hand and wrist, Dr. Soler noted moderateswelling about the wrist and hand, tenderness on the ulnar side of the right wrist joint, tenderness at the radiocarpal joint, and tenderness over the A1 nisha of the right long finger. He reported normal and symmetric hand and wrist range of motion and normal sensation to light touch. X- rays of the right elbow, wrist, and hand were taken. Dr. Soler interpreted these x-rays as showing no evidence of arthritis, no evidence of fracture or dislocation, and soft tissues within normal limits. Theright wrist is not mentioned in the Assessment and Plan section of the office note. Dr. Soler focused on Mr. Vega's right knee, and he recommended an MRI for the right k nee. He took Mr. Vega off of work at this point. Mr. Vega tells me that Dr. Soler referred him to Dr. Bjorn Og MD for his right wrist. Mr. Vega was seen in Dr. [place] Og's officein [place], [place] on July 25, 2023. Mr. Vega was actually first seen by Fabiola Goss NP in Dr. Og's office. Ms. Goss noted that Mr. Vega presented with ...rightwrist and right knee pain that has been going on since February after a fall. He states that he fell at work and his knee hit the concrete and he caught himself with his right wrist. he presented to his healthcare provider where x-rays were taken. he was told he did not have any fractures. He was sent to physical therapy and told to take ibuprofen which is helped the pain in his knee. He is still experiencing pain in the right wrist... X-rays of the right wrist were examined, and these were interpreted as ...no acute bony abnormalities or fractures... On examination of the right wrist, there was ...pain with palpation of ulnar wrist over cartilage. Pain with side to side movement and when resisting pressure... Ms. Goss did not list a diagnosis for Mr. Vega's right wrist pain, other than pain in right hand and pain in right wrist. Ms. Goss did refer Mr. Vega to physical therapy for his right wrist ...to work on stretching and strengthening... She also provided Mr. Vega with a right wrist brace, and she prescribed Meloxicam as an anti-inflammatory. She also recommended Voltaren gel to use topically. Mr. Vega was to follow up with Dr. Og in 4-6 weeks. Mr. Vega was first seen for his right wristin physical therapy at [facility] on July 31, 2023. The physical therapist, Stuart Moon, PT described Mr. Vega's pain as ...when he is swinging a hammer, he gets pain. If the hand is not lying properly such as when he is sleeping, he will get pain. The pain happened after he fell and used his R wrist to catch himself... Mr. Moon described tenderness to palpation at the right ulnar styloid process and at the triangular fibrocartilage complex.Mr. Vega continued to experience right hand and wrist pain, despite physical therapy. Mr. Andersongeovanna documented on August 08, 2023 that Mr. Vega ...shares that the numbness in his R fingers are increasing in severity and frequency. It applies to all of his fingers... increased numbness is felt in his fingers with prolonged positioning of pronation with his forearm resting on the plinth. Radial deviation and wrist extension cause ulnar sided wrist pain... Mr. Vega continued physical therapy through August 22, 2023. He followed up with Dr. Og on August 29, 2023. Dr. Og noted that Mr. Vega ...reports the knee feels a lot better. His hand pain is getting worse. He has been doing physical therapy, wearing a brace, and taking meloxicam... He still reportswrist pain as being located over the ulnar side, worse with activities... Dr. Og reportedthat ...given his persistent symptoms of his wrist, the next step would be to obtain an MRI to evaluate for the ulnar-sided structures including the TFCC and tendons.... Mr. Vegawas to follow up with Dr. Og after the MRI. However, Mr. Vega tells me today that he was then referred to be seen by a different physician, a hand surgeon specialist, in September 2023. I do not haveany medical records from the hand specialist, or any other additional medical records available to me today. The cover letter indicates that the MRI of the right wrist was performed on September 07, 2023, and the impression was ...1. Pisiformitriquetral osteoarthritis, associated synovitis and reactive soft tissue edema. 2. No soft tissue injury... Mr. Vega tells me that when he saw the hand surgeon specialist, he was given cortisone injections by the hand surgeon in 3 or 4 different places in his right hand and wrist. Mr. Vega does feel that the injections helped, but he still has some discomfort. He also describes numbness and tingling in his right hand. He has a follow-up appointment with the hand surgeon scheduled for early November 2023. Mr. Vega is here for the Independent Medical Evaluation today. Mr. Vega reports that his past medical history is otherwisenegative. He does not take any medications. His past surgical history is positive for gallbladder surgery about 8 years ago and back surgery with a fusion from L5-S1 about 8 years ago. When I asked Mr. Vega about hobbies, he reported that he enjoys gardening, hunting, and fishing. Reason For Referral Reason For Referral No Information History Of Present Illness Encounter Date Complaint History Of Prese nt Illness Right wrist Mr. Jesus garcia presents to the office today on November 06, 2023. He is here for an Independent Medical Evaluation regarding his right wrist. Mr. Vega injured his right wrist while he was working for [employer]. He started working for [employer] on February 13, 1994. Mr. Vega explains that he worked for the [employer] for 29 years. He was terminated at the end of March 2024. Mr. Vega reports that one day at the end of March 2024, he was met in the parking lot by his manager membership, and he was told that he was no longer needed. In other words, he was terminated. Mr. Vega asked why, and his manager membership said that he did not have to give him a reason. Mr. Vega reports to me today that he had not worked anywhere else before working for [employer]. He is currently not working. Mr. 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 He reports everything is physical at his job. A Job Requirements form from April 04, 2023 describes Mr. Vega's job as requiring lifting over 50 pounds and carrying over 50 pounds up to 33% of the time. The job also requires simple grasping and use of machinery or tools, including construction equipment and hand tools. Mr. Vega injured his right wrist at work on February 13, 2023. He explains that he and another worker were drilling a hole. He was using a couples therapist, and he slid into a ditch. Mr. Vega reports that the ditch had concrete at the bottom. He tells me that he was holding a $5000 piece of equipment in his hands when he fell, so he fell awkwardly trying to protect the equipment. He struck the ground with his right side. Mr. Vega reports that he had pain in his right knee and right wrist after the injury. He continued working after the injury, although he did report the injury that same day. Mr. Vega tells me that he developed increasing pain, so he filled out the appropriate paperwork a few days later. He was then referred to Dr. Christopher Soler MD with [facility]. Mr. Vega was seen by Dr. Soler on March 13, 2023. The office note from Dr. Soler documents that Mr. Vega presented with right knee pain, but there is no mention of the injury to his right wrist in his office note. Mr. Vega was treated for his right knee injury with a cortisone injection, a right knee brace, Mobic as an oral anti-inflammatory agent, Diclofenac cream as a topical anti-inflammatory agent, physical therapy, and home exercises. He was placed on work restrictions of must use right knee brace at work. He was scheduled to follow up with Dr. Soler in 5 weeks. Mr. Vega did follow up with Dr. Soler on April 17, 2023 for his right knee. However, again, the office note has no mention of the injury to his right wrist. Mr Vega was to continue the knee brace and anti-inflammatories. Physical therapy had been delayed, but was scheduled to begin on April 26, 2023. Mr. Vega worked with physical therapy at [facility] from April 26, 2023 through May 24, 2023. There is no documentation within these physical therapy notes about the injury to his right wrist, or concerning any symptoms relative to his right wrist. Mr. Vega followed up with Dr. Soler on May 29, 2023. This time, the chief complaints section of the office note lists right knee pain, right wrist pain, and right elbow pain. Dr. Soler documented that when Mr. Vega fell on February 13, 2023 ...he also tried to catch himself with his right upper extremity.. There was ...minor pain at the time of the injury but it is persistent and not getting any better... Mr. Vega followed up with Dr. Soler on July 03, 2023. Dr. Soler documented that ...the patient is showing no improvement at this point... On examination of the right hand and wrist, Dr. Soler noted moderate swelling about the wrist and hand, tenderness on the ulnar side of the right wrist joint, tenderness at the radiocarpal joint, and tenderness over the A1 nisha of the right long finger. He reported normal and symmetric hand and wrist range of motion and normal sensation to light touch. X-rays of the right elbow, wrist, and hand were taken. Dr. Soler interpreted these x-rays as showing no evidence of arthritis, no evidence of fracture or dislocation, and soft tissues within normal limits. The right wrist is not mentioned in the Assessment and Plan section of the office note. Dr. Soler focused on Mr. Vega's right knee, and he recommended an MRI for the right knee. He took Mr. Vega off of work at this point. Mr. Vega tells me that Dr. Soler referred him to Dr. Bjorn Og MD for his right wrist. Mr. Vega was seen in Dr. Bjorn Og's office in [place], [place] on July 25, 2023. Mr. Vega was actually first seen by Fabiola Goss NP in Dr. Og's office. Ms. Goss noted that Mr. Vega presented with ...right wrist and right knee pain that has been going on since February after a fall. He states that he fell at work and his knee hit the concrete and he caught himself with his right wrist. he presented to his healthcare provider where x-rays were taken. he was told he did not have any fractures. He was sent to physical therapy and told to take ibuprofen which is helped the pain in his knee. He is still experiencing pain in the right wrist... X-rays of the right wrist were examined, and these were interpreted as ...no acute bony abnormalities or fractures... On examination of the right wrist, there was ...pain with palpation of ulnar wrist over cartilage. Pain with side to side movement and when resisting pressure... Ms. Goss did not list a diagnosis for Mr. Vega's right wrist pain, other than pain in right hand and pain in right wrist. Ms. Goss did refer Mr. Vega to physical therapy for his right wrist ...to work on stretching and strengthening... She also provided Mr. Vega with a right wrist brace, and she prescribed Meloxicam as an anti-inflammatory. She also recommended Voltaren gel to use topically. Mr. Vega was to follow up with Dr. Og in 4-6 weeks. Mr. Vega was first seen for his right wrist in physical therapy at [facility] on July 31, 2023. The physical therapist, Stuart Moon, PT described Mr. Vega's pain as ...when he is swinging a hammer, he gets pain. If the hand is not lying properly such as when he is sleeping, he will get pain. The pain happened after he fell and used his R wrist to catch himself... Mr. Moon described tenderness to palpation at the right ulnar styloid process and at the triangular fibrocartilage complex. Mr. Vega continued to experience right hand and wrist pain, despite physical therapy. Mr. Moon documented on August 08, 2023 that Mr. Vega ...shares that the numbness in his R fingers are increasing in severity and frequency. It applies to all of his fingers... increased numbness is felt in his fingers with prolonged positioning of pronation with his forearm resting on the plinth. Radial deviation and wrist extension cause ulnar sided wrist pain... Mr. Vega continued physical therapy through August 22, 2023. He followed up with Dr. Og on August 29, 2023. Dr. Og noted that Mr. Vega ...reports the knee feels a lot better. His hand pain is getting worse. He has been doing physical therapy, wearing a brace, and taking meloxicam... He still reports wrist pain as being located over the ulnar side, worse with activities... Dr. Og reported that ...given his persistent symptoms of his wrist, the next step would be to obtain an MRI to evaluate for the ulnar-sided structures including the TFCC and tendons.... Mr. Vega was to follow up with Dr. Og after the MRI. However, Mr. Vega tells me today that he was then referred to be seen by a different physician, a hand surgeon specialist, in September 2023. I do not have any medical records from the hand specialist, or any other additional medical records available to me today. The cover letter indicates that the MRI of the right wrist was performed on September 07, 2023, and the impression was ...1. Pisiformitriquetral osteoarthritis, associated synovitis and reactive soft tissue edema. 2. No soft tissue injury... Mr. Vega tells me that when he saw the hand surgeon specialist, he was given cortisone injections by the hand surgeon in 3 or 4 different places in his right hand and wrist. Mr. Vega does feel that the injections helped, but he still has some discomfort. He also describes numbness and tingling in his right hand. He has a follow-up appointment with the hand surgeon scheduled for early November 2023. Mr. Vega is here for the Independent Medical Evaluation today. Mr. Vega reports that his past medical history is otherwise negative. He does not take any medications. His past surgical history is positive for gallbladder surgery about 8 years ago and back surgery with a fusion from L5-S1 about 8 years ago. When I asked Mr. Vega about hobbies, he reported that he enjoys gardening, hunting, and fishing. Functional Status Date Functional Assessmen t No Information Instructions Date Instruction Additional Infor mation No Information Assessments Type Assessment Date assessment Carpal tunnel syndrome, right up per limb assessment Primary osteoarthritis, right wr ist assessment Contusion of right wrist, sequel a assessment Trigger finger, right middle fin malina assessment Lesion of ulnar nerve, right upp er limb impression I performed a [facility] history and physical examination for Mr. Jesus Vega, and I also reviewed x-ray images of the right wrist taken at [facility] on August 29, 2023, and MRI images of the right wrist taken at [facility] on September 07, 2023. 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 Christopher Soler MD with [facility], physical therapy notes from [facility], and office notes from Dr. Bjorn Og and Fabiola Goss NP. I will offer my opinions to the best of my abilities within a reasonable degree of medical certainty. I will also answer the specific questions you provided. 1. Regarding Mr. Vega's hand, what is the current diagnosis that is directly, causally, and solely related to the reported work comp injury from February 13, 2023?The current diagnoses that are directly, causally, and solely related to the reported work comp injury from February 13, 2023 are right carpal tunnel syndrome, possible right ulnar nerve neuropathy, right middle finger trigger finger, and sequelae from a right wrist contusion.2. What, if any, of the diagnosis from question #1 predate the reported work injury?I do believe that Mr. Vega had some underlying osteoarthritis of the right wrist prior to the injury. This was aggravated by the injury, and caused the manifestation of symptoms. It is possible that he also had right carpal tunnel syndrome, right ulnar nerve neuropathy, and/or a right middle finger trigger finger that predated the February 13, 2023 injury, however, he was not symptomatic until after rhe injury.3. If you opine that Mr. eVga' diagnosis is related to a preexisting condition or non-work related event, please comment on whether the work injury caused an acceleration or aggravation beyond its normal progression? If an aggravation, please comment on whether it was a temporary aggravation and at what point did the aggravation resolve?As explained above, it is my medical opinion that Mr. Vega had some underlying osteoarthritis of the right wrist prior to the injury, and it is also possible that he had right carpal tunnel syndrome, right ulnar nerve neuropathy, and/or a right middle finger trigger finger that predated the February 13, 2023 injury. However, if not related directly and solely to the work injury of February 13, 2023, the carpal tunnel syndrome, possible right ulnar nerve neuropathy, and right middle finger trigger finger would more probably be related to cumulative trauma from work activities. When Mr. Vega fell on his right hand and wrist, he likely sustained a right wrist contusion, which caused increased swelling and trauma to the right carpal tunnel, possibly the right ulnar nerve at the [place], the right middle finger flexor tendon system, and the osteoarthritic joints of the right hand and wrist, which would have then aggravated or accelerated the normal progression of these right upper extremity conditions. Although in some cases, these kinds of traumatic aggravations can be temporary, in Mr. Vega's case, it does not appear that the aggravation of symptoms relative to the right hand and/or wrist have yet to completely resolve. 4. Are there any identifiable MRI findings that directly, solely, and causally relate to the work event? Please provide a detailed report.There are no identifiable MRI findings that directly, solely, and causally relate to the work event. 5. Is the referral to the hand surgeon, reasonable, necessary, and directly related to the work injury? Please provide medical rationale.Yes, the referral to the hand surgeon is reasonable, necessary, and directly related to the work injury. Mr. Vega has multiple right hand and wrist complaints, which were not present prior to the injury. Although I believe he had a pre-existing right wrist osteoarthritis, and even possibly right carpal tunnel syndrome, right ulnar nerve neuropathy, and a right middle finger trigger, these were asymptomatic prior to the injury. The overlapping symptoms of right wrist osteoarthritis, sequelae from a right wrist contusion, right carpal tunnel syndrome, possible right ulnar nerve neuropathy, and a right middle finger trigger finger, warrant a referral to a hand surgeon and specialist.6. What, if any, are the recommended restrictions that are directly and solely related to the reported work comp injury? If restrictions are appropriate, please provide a timeline for restrictions.Despite the injury to Mr. Vega's right wrist, and the residual symptoms, Mr. Vega does not require any work restrictions at this time.7. Has Mr. Vega reached pre-injury state and MMI regarding his right hand from the reported work incident on February 13, 2023? If not, when is MMI anticipated?Mr. Vega has not yet reached the pre-injury state or MMI regarding his right hand from the reported work accident of February 13, 2023. I do believe that he will require further treatment. I would first recommend electrodiagnostic studies to evaluate for right carpal tunnel syndrome and/or a right ulnar nerve neuropathy. Depending on the results of the electrodiagnostic studies, I might then recommend an open right carpal tunnel release procedure, an A1 nisha trigger release of the right middle finger, and a right ulnar nerve decompression. I would then anticipate that Mr. Vega would reach MMI 10-12 weeks after these procedures. Based on today's examination, I would not recommend a right wrist pisiform excision at this time.I hope this is helpful in maintaining your files on Mr. Jesus Vega. Please feel free to contact me for further questions or concerns. Sincerely, Marino Garcia MD Patient Care Teams Name Effective Dates (start - stop) Status Members No Information
== END 2024-10-29 09:57 | disposition home or self-care (01) ==
PROVIDERS: Visit Provider Plastic Surgery
DX: M19.031 Primary osteoarthritis, right wrist (principal)
CPT/HCPCS: 73110; 73130

== ENCOUNTER 2024-11-25 14:53 | Outpatient (CLI) | payer OTHER, SELFPAY ==
--- NOTE | ~2024-11-25 | MR_ITS ---
EXAMINATION: MR wrist RT wo/w con DATE: 11/25/2024 15:33 INDICATION: Jazzmine fibrocartilage complex sprain versus extensor carpi ulnaris tenosynovitis and wilbert glion cyst. TECHNIQUE: Magnetic resonance imaging (MRI) of the right wrist was performed without and with 19 mL P roHance intravenous contrast. Sequences performed include axial and sagittal PD-weighted FSE, axial, sagittal and coronal PD-weighted FS FSE, coronal T1-weighted FSE and postcontrast axial, sagittal and coronal T1-weighted FS FSE. COMPARISON: Radiographs dated 10/29/2024 FINDINGS: Intrinsic ligaments: The scapholunate and lunotriquetral ligaments are normal. Triangular fibrocartilage complex (TFCC): There is a partial tear at the ulnar styloid attachment of the triangular fibrocartilage complex. The central fibrocartilaginous disc, the foveal and radial attachments as well as the dorsal and volar r adioulnar ligaments are normal. There is also a partial tear of the distal aspect of the ulnotriquetr al ligament. The extensor carpi ulnaris tendon sheath is normal. Extensor wrist: Extensor tendons of the wrist are normal. No tenosynovitis. Flexor wrist: The flexor tendons of the wrist are normal. No abnormality in the carpal tunnel with normal median n erve. Guyon's canal: Guyon's canal including the ulnar nerve and artery are normal. Bones/other: Normal marrow signal. No fracture, avascular necrosis or pathologic marrow replacing process. Mild os teoarthritis at the midcarpal joint with partial-thickness cartilage loss most prominent at the artic ulation of the hamate with the type II lunate with minimal underlying subarticular edema-like signal change. There is severe osteoarthritis with high-grade chondromalacia subarticular cystlike changes a t both sides of the pacer triquetral articulation. Additional mild osteoarthritis at the distal radio ulnar, wrist, triscaphe and a few of the carpal metacarpal joints. There is mild synovitis at the mar gins of the pacer triquetral articulation IMPRESSION: 1. 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 2. Partial tears at the styloid attachment of the triangular fibrocartilage complex and at the distal aspect of the ulnar triquetral ligament. Reviewed, dictated and finalized at location A. IMPRESSION: 1. 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 2. Partial tears at the styloid attachment of the triangular fibrocartilage com plex and at the distal aspect of the ulnar triquetral ligament.
--- OUTSIDE RECORDS SUMMARY | 2024-11-25 14:57 | XMS_ITS ---
Author Organization [facility] Address [address] [place] [address] Care Team Providers Care Stock Holder Name Role Phone Burgess Adele Primary Care Provider UnaDeven Simmons Unavailable [phone] Sintia De Los Santos Unavailable [phone] ALLERGIES No Known Allergies RESULTS Component Value Reference Range Notes MRI : Lumbar without contras t Reviewed date:11/06/2024 11:26:38 AM Interpretation: Performing Lab: Notes/Report: X ray : Cervical Spine 7 vie ws, AP, Lateral, Swimmers, Obliques, Flexion and Extension Reviewed date:11/06/2024 11:23:12 AM Interpretation: Performing Lab: Notes/Report: X ray : Lumbar Spine 3 views , AP, Lateral, Spot Reviewed date:11/06/2024 11:23:07 AM Interpretation: Performing Lab: Notes/Report: REASON FOR VISIT Lumbar MEDICATIONS Medication SIG (Take, Route, Fr equency, Duration) Notes Start Date End Date Status Medrol 4 MG as directed Orally take as directed Not-Taking Aleve Not-Taking Protonix Not-Taking SOCIAL HISTORY Sex Assigned At : Social History Observation Description Sex Assigned At Unknown Tobacco Use/Smoking Question Answer Notes Additional Findings: Tobacco User Chews tobacco Alcohol Screen Question Answer Notes Did you have a drink contain ing alcohol in the past year? Yes How often did you have a dri nk containing alcohol in the past year? 4 or more times a week (4 points) Points 4 Interpretation Positive PROBLEMS Problem Type ICD Code Onset Dates Problem Status W/U Status Risk SNOMED Code Notes Problem Low back pain of multiple sites of spine with sciatica (M54.40) Active confirmed Problem Neck pain (M54.2) Active confirmed Neck pain (70130496) Problem Lumbar radicular pain (M54.16) Active confirmed Lumbar radicul ar pain (8648793518) Problem Other intervertebral disc degeneration, lumbar region (M51.36) Active confirmed Degeneration of lumbar intervertebral disc (21155915) VITAL SIGNS BMI 33.89 kg/m2 11/06/2024 Height 66 in 11/06/2024 Weight 210 lbs 11/06/2024 Encounters Encounter Location Date Provider Diagnosis [facility] [address] [place] [address] 11/06/2024 Sintia Imeldagriff Neck pain M54.2 ; Other low back pain M54.59 and Disc Degeneration, Lumbar Region with Leg Pain M51.361 ASSESSMENTS Encounter Date Diagnosis Assessment Notes Treatment Notes Treatment Clinical Notes 11/06/2024 Neck pain (ICD-10 - M54.2) 11/06/2024 Other low back pain (ICD-10 - M54.59) 11/06/2024 Disc Degeneration, Lumbar Region with Leg Pain (ICD-10 - M51.361) PLAN OF TREATMENT No Information Progress Notes * Examination Category Sub-Category Detail Notes X-Ray CERVICAL SPINE X-RAY: Seven view s of the cervical spine were obtained today. They demonstrate C4 to 5 with mild disc degeneration. C5 to 6 shows moderate disc degeneration and left greater than right foraminal stenosis LUMBAR X-RAY: AP and lateral views of the lumbar spine were obtained today. They demonstrate L2 to 3 with mild disc degeneration. L4 to 5 shows retrolisthesis and mild disc degeneration. There is the previous L5 to S1 fusion with hardware
--- OUTSIDE RECORDS SUMMARY | 2024-11-25 14:58 | XMS_ITS | Encounter Summary ---
Author Organization [facility] Address [facility] [place] [address] Care Team Providers Care Price Changer Name Role Phone Eryn Mar MD Primary Care Provider [phone] None, Provider Primary Care Provider Unavaila ble Encounter Details Date Type Department Care Team (Late st Contact Info) Description 10/09/2017 Abstract [facility] CONVERSION [address] [place] [id number] , Generic Conversion, Social History Tobacco Use [...] on filedocumented in this encounter Care Teams Price Changer Relationship Specialty Start Date End Date Eryn Mar MD PCP - General INTERNAL MEDICINE 09/13/17 06/05/23 None, ProviderMD PCP - General UNKNOWN PHYSICIAN SPECIALTY 06/06/23 documented as of this encounter
--- OUTSIDE RECORDS SUMMARY | 2024-11-25 14:58 | XMS_ITS | Encounter Summary ---
Author Organization [facility] Address [address] [place] [address] Care Team Providers Care Sorter Pricer Name Role Phone Eryn Mar MD Primary Care Provider Encounter Details Date Type Department Care Team (Late st Contact Info) Description 08/18/2024 Lab Requisition [facility] - DermPath Lab [address] [facility], [facility] [place] [address] Maria Fernanda Escudero MD [address] [facility] [address] [place] [address] Social History Tobacco Use Types Packs/Day Years Used Date Smoking Tobacco: Never Assessed Sex and Gender Information Value Date Recorded Sex Assigned at Not on file Legal Sex Male 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 Gender Identity Not on file Sexual Orientation Not on file documented as of this encounter Plan of Treatment Not on file documented as of this encounter Procedures Procedure Name Priority Date/Time Associated Diagnosis Comments DERMATOPATHOLOGY Routine 08/18/2024 11:3 5 AM SHOOK SPLICER documented in this encounter Results * DERMATOPATHOLOGY (08/18/2024 11:35 AM SHOOK SPLICER) Case Report Dermatopathology Report Case: [id number] Authorizing Provider: Maria Fernanda Escudero MD Collected: 08/18/2024 11:35 AM Ordering Location: [facility] - Received: 08/18/2024 04:03 PM DermPath Lab Pathologist: Kenisha Rodriguez MD Specimens: A) - Skin, right lower lateral leg B) - Skin, left thigh 5:10 PM [facility] DERMATOPATHOLOGY LABORATORY Final Diagnosis Specimen A. SKIN, right lower lateral leg: COMPOUND MELANOCYTIC NEVUS, IRRITATED (D22.71) Specimen B. SKIN, left thigh: CUTANEOUS DERMATOPHYTOSIS (B35.9) 5:10 PM [facility] DERMATOPATHOLOGY LABORATORY Clinical History A: R/O MM B: AD vs ACD vs MF 5:10 PM [facility] DERMATOPATHOLOGY LABORATORY Gross Description Specimen A: Received [...] 4x4x5 mm. Jar 0. 5:10 PM [facility] DERMATOPATHOLOGY LABORATORY Microscopic Description Specimen A. SKIN, [...] CD8 ratio of 4:1. 5:10 PM [facility] DERMATOPATHOLOGY LABORATORY Disclaimer An external and internal positive and negative controls are appropriate for the histochemical, immunohistochemical and immunofluorescence stain(s) in this case (if any), except where stated explicitly. The performance characteristics of the stain(s) cited in this report were developed and its performance characteristic determined by the Dermatopathology Laboratory at [facility], directed by Dr. Nuris Nunn. These tests need not be, and therefore are not, approved by the [place] Food and Drug Administration. The tests are used for clinical purposes. Billing Codes Specimen Charges Stain Charges 27112 21799 1 1 26848 39971 65800 17955 51009 98463 1 1 1 1 1 1 5 5:10 PM [facility] DERMATOPATHOLOGY LABORATORY Embedded Images 5:10 PM [facility] DERMATOPATHOLOGY LABORATORY Pathology/Cytology TISSUE SPECIMEN FROM SKIN / Unknown 08/18/2024 11:35 AM SHOOK SPLICER 08/18/2024 4:03 PM SHOOK SPLICER Miscellaneous samples (specimen) TISSUE SPECIMEN FROM SKIN / Unknown 08/18/2024 11:35 AM SHOOK SPLICER 08/18/2024 4:03 PM SHOOK SPLICER Maria Fernanda Escudero MD LAB - PATHOLOGY/CYTOLOGY OR DERABLES Final Result DERMATOPATHOLOGY LABORATORY [facility] - Department of Dermatology [facility] Specialized Medicine [address] [place] [address], [address] [phone] documented in this encounter Visit Diagnoses Not on filedocumented in this encounter Care Teams Sorter Pricer Relationship Specialty Start Date End Date Eryn Mar MD PCP - General 08/06/09 documented as of this encounter
--- OUTSIDE RECORDS SUMMARY | 2024-11-25 14:58 | XMS_ITS | Clinical Summary ---
Author Organization [facility] Address [address] [place] [address] Care Team Providers Care Beaver Trapper Name Role Phone Eryn Mar MD Primary Care Provider [phone] Source Comments [facility],non-owned Affiliates and Associated Physician Practices is amultiple site organization consisting of ambulatory clinics and hospital sitesin [place], [place], [place] and [place]. This disclosure is being madepursuant to the Care Everywhere program and may not contain all information available regarding this patient. 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 Care Teams Beaver Trapper Relationship Specialty Start Date End Date Eryn Mar MD PCP - General 08/06/09
--- OUTSIDE RECORDS SUMMARY | 2024-11-25 14:58 | XMS_ITS | Patient Health Record ---
Author Organization [facility] Address [address] [facility] [address] [place], [place] [address] Care Team Providers Care Senior Risk Analyst Name Role Phone FredySubhash Ma Unavailable [phone] Reason For Referral No Information Social History Tobacco Use: Social History Observation Description Date Details (start date - stop date) Never Smoker NA - NA Alcohol Question Answer Notes Did you have a drink containing alcohol in the p ast year? No Points 0 Interpretation Negative Smoking Question Answer Notes Are you a: nonsmoker Problems Problem Type SNOMED Code ICD Code Onset Dates Problem Status W/U Status Risk Notes Problem Tobacco user (519028796) Nicotine dependence, chewing tobacco, uncomplicated (F17.220) Active confirmed Problem Impacted cerumen (59435186) Impacted cerumen, bilateral (H61.23) Active confirmed Problem Impacted cerumen (90538368) Impacted cerumen, right ear (H61.21) Active confirmed Problem Allergic rhinitis (25461688) Allergic rhinitis, unspecified (J30.9) Active confirmed Problem Eustachian tube disorder (55202245) Unspecified Eustachian tube disorder, bilateral (H69.93) Active confirmed Problem Sensorineural hearing loss of right ear with normal hearing on left side (disorder) (7663789234) Sensorineural hearing loss, unilateral, right ear, with unrestricted hearing on the contralateral side (H90.41) Active confirmed Plan Of Treatment No Information Insurance Providers Payer Name Payer Address Payer Phone Subscriber Number Group Number Insured Name Patient Relationship to Insured Coverage Start Date Coverage End Date [facility] [address] [place] [address] [phone] [id number] Jesus Vega Self - patient is the insured Medical (General) History Medical History History ICD Code Pertinent Medical History: Eye problems, History of Allergies, Ear problems, Surgical History Surgery Date(Month/Year) RTti 2017 outside ent in office back /gb
--- OUTSIDE RECORDS SUMMARY | 2024-11-25 14:58 | XMS_ITS ---
Author Organization [facility] Address [address] [facility] [address] [place] [address] Care Team Providers Care Precision Layout Worker Name Role Phone Fab Burgessrie Primary Care Provider Unava ilable Deven Hardy Unavailable [phone] REASON FOR REFERRAL Reason Eval and Treat Diagnosis 1 Lumbar radiculopathy (M54.16) Referral Organization [facility] Referring Provider First Name Deven Referring Provider Last Name Hayley Referring Provider Speciality Orthopedic Surgery Referred Provider Josef Lee Referral Priority Routine REASON FOR VISIT SNN MRI Lumb 11-12-24 Encounters Encounter Location Date Provider Diagnosis [facility] [address] [facility] [address] [place] [address] 11/20/2024 Deven Hardy PLAN OF TREATMENT Referrals Referral Date Details Eval Josef Gates Consultation Request Notes Referral Date Referring Provider Referred Provider Not es 11/20/2024 Deven Hardy Chad Eval and Treat
--- OUTSIDE RECORDS SUMMARY | 2024-11-25 14:58 | XMS_ITS | CONTINUITY OF CARE DOCUMENT ---
Author Name anila high Address Unknown Organization [facility] Address [address] [facility] [address] [place] [address] Phone [phone] Care Team Providers Care Wet Machine Operator Name Role Phone Kassidy RAMIREZ, Jaydon Cullen Unavailable [phone] BILL RAMIREZ, ROB Unavailable [phone] BILL RAMIREZ, ROB Unavailable PROBLEMS Condition Status Date Provider Notes Palpitations active Jaydon zapata MD Chest pain - precordial active Jaydon Yi MD HTN essential active Jyadon tolentino MD Other symptoms involving cardiovascular system active Jaydon Yi MD ENCOUNTERS Date Type Provider Location Encounter Diag nosis - In-person encounter Office Visit Jaydon Pelayo Office - In-person encounter Office Visit Jaydon Trivedi [facility] Other symptoms involving cardiovascular systemHTN essentialChest pain - precordialPalpitations VITAL SIGNS Date Observation Value Provider Body Mass Index (Ratio) 33.25 kg/m2 Shanna Espinoza blood pressure, diastolic 72 mm[Hg] Shailesh Watson blood pressure, systolic 120 mm[Hg] Zainab Watson respiratory rate E&M 16 /min Alejandro Watson oxygen saturation, oximetry 98 % Alejanrdo Watson pulse rate 72 /min Alejandro tam weight E&M 206 [lb_av] [facility] height E&M 66 [in_i] [facility] Body Mass Index (Ratio) 34.05 kg/m2 Vernon rt Subhash Yi MD pulse rate 82 /min Alejandrorosanna Maza [facility] blood pressure, diastolic 80 mm[Hg] Shailesh purcell Elisharenatearti blood pressure, systolic 124 mm[Hg] Zainab Fariasdontae oxygen saturation, oximetry 98 % Alejandrorosanna Watson blood pressure, resting No Patr lorrimalgorzata Watson height E&M 66 [in_i] Alejandro [facility] respiratory rate E&M 16 /min Alejandro Watson weight E&M 211 [lb_av] [facility] ALLERGIES No Known Drug Allergies [...] and lives at home (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 He works for the [employer]. He denies smoking (but does use occasional chewing tobacco) and illicit drug use. Jaydon Yi MD smoking status Never smoker Alejandro Tellorenate arti FAMILY HISTORY Family Member Condition Father Family History Unkno wn Mother Family History Unkno wn INSURANCE PROVIDERS Payer name Policy type / Coverage type Jt red constitution party ID SELF PAY [id number] ADVANCE DIRECTIVES Name Date DO NOT RESUSCITATE TREATMENT PLAN Date Name Performer Cardiology:Symptoms are mild and non-limiting. I will follow clinically for now and will consider obtaining a cardiac tech if symptoms become more frequent or severe. [...] and I will then consider obtaining a cardiac tech if symptoms warrant. Jaydon Yi MD Cardiology:Blood [...]
--- OUTSIDE RECORDS SUMMARY | 2024-11-25 14:58 | XMS_ITS | Clinical Summary ---
Author Organization [facility] Address [facility] [place] [address] Care Team Providers Care End Lathe Operator Name Role Phone None, Provider MD Primary [...] this topic Insurance JUAN LUIS Care Teams End Lathe Operator Relationship Specialty Start Date End Date None, Provider, PCP - General UNKNOWN PHYSICIAN SPECIALTY 06/06/23
--- OUTSIDE RECORDS SUMMARY | 2024-11-25 14:58 | XMS_ITS ---
Author Organization [facility] Address [address] [facility] [address] [place] [address] Care Team Providers Care Greenhouse Assistant Name Role Phone Adele Burgess Primary Care Provider Unava ilable Deven Hardy Unavailable [phone] REASON FOR VISIT next steps Encounters Encounter Location Date Provider Diagnosis [facility] [address] [facility] [address] [place] [address] 11/19/2024 Deven Hardy PLAN OF TREATMENT No Information
--- OUTSIDE RECORDS SUMMARY | 2024-11-25 14:58 | XMS_ITS | Patient Health Record ---
Author Organization [facility] Address [address] [address] Care Team Providers Care Access Spec Name Role Phone Aditya Adele Primary Care Provider Unajoshua ilable Deven Hardy Unavailable [phone] Sintia De Los Santos Unavailable [phone] ALLERGIES No Known Allergies RESULTS Component Value [...] AM Interpretation: Performing Lab: Notes/Report: REASON FOR REFERRAL Reason Eval and Treat Diagnosis 1 Lumbar radiculopathy (M54.16) Referral [facility] Referring Provider First Name Deven Referring Provider Last Name Hayley Referring Provider Speciality Orthopedic Surgery Referred Provider Josef Lee Referral Priority Routine MEDICATIONS Medication SIG (Take, Route, Fr equency, [...] of spine with sciatica (M54.40) Active confirmed Sciatica (06684866) Problem Neck pain (M54.2) Active confirmed Neck pain (47001055) Problem Lumbar radicular pain (M54.16) Active confirmed Lumbar radicul ar pain (9750297083) Problem Other intervertebral disc degeneration, lumbar region (M51.36) Active confirmed Degeneration of lumbar intervertebral disc (22930562) VITAL SIGNS Height 66 in 11/06/2024 Weight 210 lbs 11/06/2024 BMI 33.89 kg/m2 11/06/2024 Encounters Encounter Location Date Provider Diagnosis [facility] [address] [place] [id number] 11/06/2024 Sintia De Los Santos Neck pain M54.2 ; Other low back pain M54.59 and Disc Degeneration, Lumbar Region with Leg Pain M51.361 [facility] [address] [place] [id number] 11/19/2024 Deven Hardy [facility], [address] [place], [place] [address] 11/20/2024 Deven Hardy ASSESSMENTS Encounter Date Diagnosis Assessment Notes Treatment Notes Treatment Clinical Notes 11/06/2024 Neck pain (ICD-10 - M54.2) 11/06/2024 Other low back pain (ICD-10 - M54.59) 11/06/2024 Disc Degeneration, Lumbar Region with Leg Pain (ICD-10 - M51.361) PLAN OF TREATMENT Pending Test Test Name Order Date Lumbar Decompression and Transforminal I nterbody Fusion 06/21/2015 Insurance Providers Payer Name Payer Address Payer Phone Subscriber Number Group Number Insured Name Patient Relationship to Insured Coverage Start Date Coverage End Date r [address] [address] [employer] [facility] [place] [address] [id number] Yasmin Vega Spouse - patient is the spouse of the insured MEDICAL (GENERAL) HISTORY Medical History History ICD Code Sleep Apnea Intential Weight Loss Surgical History Surgery Date(Month/Year) Lumbar Fusion 2015 Cholecystectomy Hernia Appendectomy Hospitalization History Reason Date(Month/Year) As per above.
== END 2024-11-25 14:54 | disposition home or self-care (01) ==
LOC: ANHIMG 14:54
PROVIDERS: Visit Provider Plastic Surgery
DX: M19.031 Primary osteoarthritis, right wrist (principal); S63 Dislocation and sprain of joints and ligaments at wrist and hand level; X58.XXXD Exposure to other specified factors, subsequent encounter
CPT/HCPCS: 73223; A9579